=== PATIENT | male | born 1980 | race Hispanic/Latino ===

== ENCOUNTER 2025-03-28 23:42 | Emergency (ER) | payer SELFPAY ==
[2025-03-29] MEDS ORDERED: KETOROLAC 30 MG/ML INJ ONE (00:10)
[2025-03-29 00:21] LABS: Urine Microscopic Reflex YN NO UMIC
--- NOTE | 2025-03-29 02:11 | ER ---
Nurse's Notes [facility] Name: Eliecer La Age: 45 yrs Sex: Male : 1980 Arrival Date: 03/28/2025 Time: 23:42 Bed 5 Private MD: Diagnosis: Right Groin Pain Presentation: 03/28 23:51 Chief complaint: Patient states: Pt states he was working out yesterday and began br2 having pain to right groin that radiates to right flank area.. Denies pain with urination. Coronavirus screen: Client denies travel out of the [place] in the last 14 days. Ebola Screen: Patient denies exposure to infectious person. Initial Sepsis Screen: Does the patient meet any 2 criteria? No. Patient's initial sepsis screen is negative. Does the patient have a suspected source of infection? No. Patient's initial sepsis screen is negative. Risk Assessment: Do you want to hurt yourself or someone else? Patient reports no desire to harm self or others. Onset of symptoms was March 27, 2025. 23:51 Method Of Arrival: Ambulatory br2 23:51 Acuity: JOSE 3 br2 Triage Assessment: 23:56 General: Appears Behavior is calm, cooperative. Pain: Complains of pain in right br2 femoral area and right inguinal area Pain currently is 10 out of 10 on a pain scale. Historical: - Allergies: 23:56 No Known Allergies; br2 - PMHx: 23:56 None; br2 - Immunization history:: Adult Immunizations up to date. - Infectious Disease History:: Denies. - Social history:: Smoking status: Patient denies any tobacco usage or history of. Patient/guardian denies using alcohol, street drugs. Screenin:53 [facility] ED Fall Risk Assessment (Adult) History of falling in the last 3 months, bm8 including since admission No falls in past 3 months (0 pts) Confusion or Disorientation No (0 pts) Intoxicated or Sedated No (0 pts) Impaired Gait No (0 pts) Mobility Assist Device Used No (0 pt) Altered Elimination No (0 pt) Score/Fall Risk Level 0 - 2 = Low Risk Oriented to surroundings, Maintained a safe environment, Educated pt \T\ family on fall prevention, incl call for assistance when getting out of bed, Assessed \T\ reinforced patient's understanding of fall precautions, Hourly rounding (assess needs \T\ fall precautionary measures) done, Used ambulatory aids as needed (educated on \T\ assisted with), Used gait belt as appropriate. Abuse screen: Denies threats or abuse. Nutritional screening: No deficits noted. Tuberculosis screening: No symptoms or risk factors identified. Assessment: 03/29 00:02 General: Appears in no apparent distress. uncomfortable, Behavior is calm, cooperative, bm8 appropriate for age. Pain: Complains of pain in right femoral area Pain currently is 5 out of 10 on a pain scale. at worst was 10 out of 10 on a pain scale. Quality of pain is described as tight, tugging. Neuro: No deficits noted. Level of Consciousness is awake, alert, obeys commands, Oriented to person, place, time, situation, Appropriate for age. Cardiovascular: Denies chest pain, Capillary refill < 3 seconds in bilateral fingers Patient's skin is warm and dry. Respiratory: Airway is patent Respiratory effort is even, unlabored, Respiratory pattern is regular, symmetrical. GI: No signs and/or symptoms were reported involving the gastrointestinal system. : Reports pain in right groin. EENT: No signs and/or symptoms were reported regarding the EENT system. Derm: No signs and/or symptoms reported regarding the dermatologic system. Musculoskeletal: No signs and/or symptoms reported regarding the musculoskeletal system. 01:21 Reassessment: Patient appears in no apparent distress at this time. Patient and/or bm8 family updated on plan of care and expected duration. Pain level reassessed. Patient is alert, oriented x 3, equal unlabored respirations, skin warm/dry/pink. Patient states feeling better. Patient states symptoms have improved. Pain: Pain currently is 3 out of 10 on a pain scale. 02:27 Reassessment: Patient appears in no apparent distress at this time. No changes from bm8 previously documented assessment. Patient and/or family updated on plan of care and expected duration. Pain level reassessed. Patient is alert, oriented x 3, equal unlabored respirations, skin warm/dry/pink. Patient states feeling better. Patient states symptoms have improved. 02:28 Reassessment: awaiting CT results for discharge per provider. Vital Signs: 03/28 23:51 BP 157 / 96; Pulse 81; Resp 18; Temp 98.6; Pulse Ox 96% on R/A; Weight 87.09 kg; Height br2 5 ft. 8 in. ; Pain 10/10; 03/29 00:02 BP 129 / 68; Pulse 88; Resp 17; Temp 98.6; Pulse Ox 97% ; Pain 5/10; bm8 01:21 BP 126 / 78; Pulse 74; Resp 17; Temp 98.6; Pulse Ox 96% ; Pain 3/10; bm8 02:27 BP 127 / 70; Pulse 74; Resp 17; Temp 98.6; Pulse Ox 97% ; Pain 0/10; bm8 03/28 23:51 Body Mass Index 29.19 (87.09 kg, 172.72 cm) br2 03/28 23:51 Pain Scale: Adult br2 03/29 00:02 Pain Scale: Adult bm8 01:21 Pain Scale: Adult bm8 02:27 Pain Scale: Adult bm8 Elisabeth Coma Score: 03/28 23:53 Eye Response: spontaneous(4). Motor Response: obeys commands(6). Verbal Response: bm8 oriented(5). Total: 15. 03/29 01:21 Eye Response: spontaneous(4). Motor Response: obeys commands(6). Verbal Response: bm8 oriented(5). Total: 15. 02:27 Eye Response: spontaneous(4). Motor Response: obeys commands(6). Verbal Response: bm8 oriented(5). Total: 15. ED Course: 03/28 23:44 Patient arrived in ED. [id number] 23:46 Donald Person [facility]. cp 23:46 Marianna Sanchez MD is Attending Physician. cp 23:53 Patient has correct armband on for positive identification. Placed in gown. Bed in low bm8 position. Call light in reach. Side rails up X 1. Adult w/ patient. Client placed on continuous cardiac and pulse oximetry monitoring. NIBP monitoring applied. Pulse ox on. NIBP on. Door closed. Warm blanket given. Verbal reassurance given. Head of bed elevated. 23:53 Patient maintains SpO2 saturation greater than 95% on room air. bm8 23:56 Triage completed. br2 23:56 Arm band placed on right wrist. br2 03/29 00:02 Jerry Soares, RN is Primary Nurse. bm8 00:42 CT Stone Protocol In Process Unspecified. EDMS 01:24 No provider procedures requiring assistance completed. Patient did not have IV access bm8 during this emergency room visit. 02:27 Provided Education on: post er care. bm8 Administered Medications: 00:16 Drug: Ketorolac IM 30 mg IM once Route: IM; Site: right vastus lateralis; zm 01:23 Follow up: Response: No adverse reaction bm8 00:16 Drug: Methocarbamol PO 750 mg PO once Route: PO; zm 01:23 Follow up: Response: No adverse reaction bm8 Medication: 03/28 23:53 VIS not applicable for this client. bm8 Outcome: 03/29 02:10 Discharge ordered by MD. cp 02:32 Discharged to home ambulatory, with family, bm8 02:32 Condition: stable 02:32 Discharge instructions given to patient, family, Instructed on discharge instructions, follow up and referral plans. no drinking with medication, no driving heavy equipment, medication usage, safety practices, Demonstrated understanding of instructions, follow-up care, medications, Prescriptions given X 2, 02:36 Patient left the ED. bm8 Signatures: Dispatcher [employer] EDMS Donald Person PA-C PASarita Jackson cp [email or web address] Donna Nixon, CHANDAN RN zm Jerry Soares RN RN bm8 Eileen Torres RN RN br2
--- NOTE | 2025-03-29 02:11 | EDPHYS ---
Physician Documentation [facility] Name: Eliecer La Age: 45 yrs Sex: Male : 1980 Arrival Date: 03/28/2025 Time: 23:42 Bed 5 Private MD: ED Physician Marianna Sanchez HPI: 03/28 23:55 This 45 yrs old Male presents to ER via Ambulatory with complaints of Hip Injury, Groin cp Injury. 23:55 The patient or guardian reports right groin pain. sustained from unknown reason, pain cp started yesterday, worked out 2 days ago but no known injury and/or immediate pain. The complaints affect the right inguinal and right groin. Onset: The symptoms/episode began/occurred today. Associated signs and symptoms: Pertinent negatives: abdominal pain, diarrhea, dysuria, fever, weakness. Severity of symptoms: in the emergency department the symptoms are unchanged, despite home interventions. Historical: - Allergies: 23:56 No Known Allergies; br2 - PMHx: 23:56 None; br2 - Immunization history:: Adult Immunizations up to date. - Infectious Disease History:: Denies. - Social history:: Smoking status: Patient denies any tobacco usage or history of. Patient/guardian denies using alcohol, street drugs. ROS: 23:59 MS/extremity: Positive for pain, of the right inguinal and right groin, Negative for cp decreased range of motion, 23:59 Eyes: Negative for injury, pain, redness, and discharge, cp 23:59 Constitutional: Negative for body aches, chills, fever, 23:59 Abdomen/GI: Negative for abdominal pain, vomiting, diarrhea, constipation, 23:59 Back: Negative for pain at rest, pain with movement, radiated pain, 23:59 : Negative for urinary symptoms, testicular pain 23:59 Skin: Negative for rash, 23:59 All other systems are negative, Exam: 23:59 Head/Face: Normocephalic, atraumatic. cp 23:59 Constitutional: The patient appears in no acute distress, alert, awake, non-toxic, well developed, well nourished, 23:59 Eyes: Periorbital structures: appear normal, Conjunctiva: normal, no exudate, no injection, Sclera: no appreciated abnormality, Lids and lashes: appear normal, bilaterally, 23:59 ENT: External ear(s): are unremarkable, Nose: is normal, Mouth: Lips: moist, Oral mucosa: moist, Posterior pharynx: Airway: no evidence of obstruction, patent, 23:59 Chest/axilla: Inspection: normal, 23:59 Cardiovascular: Rate: normal, 23:59 Respiratory: the patient does not display signs of respiratory distress, Respirations: normal, no use of accessory muscles, no retractions, labored breathing, is not present, Breath sounds: are clear throughout, no decreased breath sounds, no stridor, no wheezing, 23:59 Abdomen/GI: Inspection: abdomen appears normal, Bowel sounds: active, all quadrants, Palpation: abdomen is soft and non-tender, in all quadrants, tenderness with no obvious swelling and/or mass right inguinal and right groin, 23:59 Back: pain, is absent, ROM is normal, 23:59 Skin: cellulitis, is not appreciated, no rash present. Vital Signs: 23:51 BP 157 / 96; Pulse 81; Resp 18; Temp 98.6; Pulse Ox 96% on R/A; Weight 87.09 kg; Height br2 5 ft. 8 in. ; Pain 10/10; 03/29 00:02 BP 129 / 68; Pulse 88; Resp 17; Temp 98.6; Pulse Ox 97% ; Pain 5/10; bm8 01:21 BP 126 / 78; Pulse 74; Resp 17; Temp 98.6; Pulse Ox 96% ; Pain 3/10; bm8 02:27 BP 127 / 70; Pulse 74; Resp 17; Temp 98.6; Pulse Ox 97% ; Pain 0/10; bm8 03/28 23:51 Body Mass Index 29.19 (87.09 kg, 172.72 cm) br2 03/28 23:51 Pain Scale: Adult br2 03/29 00:02 Pain Scale: Adult bm8 01:21 Pain Scale: Adult bm8 02:27 Pain Scale: Adult bm8 Elisabeth Coma Score: 03/28 23:53 Eye Response: spontaneous(4). Motor Response: obeys commands(6). Verbal Response: bm8 oriented(5). Total: 15. 03/29 01:21 Eye Response: spontaneous(4). Motor Response: obeys commands(6). Verbal Response: bm8 oriented(5). Total: 15. 02:27 Eye Response: spontaneous(4). Motor Response: obeys commands(6). Verbal Response: bm8 oriented(5). Total: 15. MDM: 03/28 23:46 Medical Screening Exam initiated cp 03/29 00:00 Differential diagnosis: muscle strain, uti, enlarged lymph node, uti, appendicitis, cp kidney stone. 02:15 Data reviewed: vital signs, nurses notes, lab test result(s), urinalysis. cp 02:15 Response to treatment: the patient's symptoms have mildly improved after treatment. cp Transition of care: After a detail discussion of the patient's case, care is transferred to Marianna Sanchez MD. ED course: awaiting radiologist read of CT abdomen/pelvis. patient and family updated. 03/28 23:53 Order name: UA Rfx Brandon Cult if indicated; Complete Time: 00:42 cp 03/29 00:42 Interpretation: Normal except: UKET 1+; UUROB 1+. cp 03/29 00:02 Order name: CT Stone Protocol cp Administered Medications: 00:16 Drug: Ketorolac IM 30 mg IM once Route: IM; Site: right vastus lateralis; zm 01:23 Follow up: Response: No adverse reaction bm8 00:16 Drug: Methocarbamol PO 750 mg PO once Route: PO; zm 01:23 Follow up: Response: No adverse reaction bm8 Disposition Summary: 03/29/25 02:10 Discharge Ordered Notes: Location: Home cp Problem: new cp Symptoms: have improved cp Condition: Stable cp Diagnosis - Right Groin Pain cp Followup: cp - With: Private Physician - When: 2 - 3 days - Reason: Worsening of condition Discharge Instructions: - Discharge Summary Sheet cp - Muscle Strain cp - Musculoskeletal Pain cp - Muscle Pain, Adult cp Forms: - Medication Reconciliation Form cp - Antibiotic Education cp - Prescription Opioid Use cp - Patient Portal Instructions cp - Leadership Thank You Letter cp - Work release form zm Prescriptions: - Diclofenac Sodium 75 mg Oral tablet, delayed release (enteric coated) - take 1 tablet ORAL route 2 times per day; 20 tablet; Refills: 0, Product cp Selection Permitted - methocarbamol 750 mg Oral tablet - take 1 tablet ORAL route 3 times per day; 30 tablet; Refills: 0, Product cp Selection Permitted Signatures: Dispatcher [facility] Donald Reaves, Donna Amaro PA-C, cp, RN RN zm Eileen Torres RN RN br2 Jerry Soares RN bm8
--- NOTE | 2025-03-29 03:21 | RAD REPORT ---
EXAM DESCRIPTION: Stone Protocol [facility]Lex: CT ABDOMEN PELVIS WITHOUT IV CONTRAST CLINICAL HISTORY: 45 years Male; right groin pain; Bed Name: 5 TECHNIQUE: CT of the abdomen and pelvis without contrast. All CT scans at this facility use dose modulation, iterative reconstruction, and/or weight based dosi ng when appropriate to reduce radiation dose to as low as reasonably achievable. COMPARISON: None. FINDINGS: Lower thorax: Lung bases are clear Abdomen: Stomach: Within normal limits Liver: No focal lesions. No intrahepatic ductal distention. Gallbladder: Nondistended Pancreas: Within normal limits Spleen: Within normal limits Right kidney: No hydronephrosis. No renal or ureteral calculi. Left kidney: No hydronephrosis. No renal or ureteral calculi. Adrenal glands: Within normal limits Vascular structures: Within normal limits (although limited evaluation on noncontrast exam). Lymph nodes: No lymphadenopathy by size criteria Pelvis: Small bowel: No significant distention. Appendix: Within normal limits Colon: No distention or acute pericolonic edema. Peritoneum: No free intraperitoneal fluid or air. Bones: No acute bone findings. Bladder: Unremarkable. Reproductive organs: No acute findings. Soft tissues: Small fat-containing umbilical hernia. Note that evaluation of the bowel and solid organs is somewhat limited due to lack of intravenous and oral contrast. IMPRESSION: 1. No acute abdominopelvic findings. 2. No urinary tract calculi. Electronically signed by: Agnes Fraser MD 03/29/2025 02:23 AM CDT TYG Due to temporary technical issues with the PACS/[place] reporting system, reports are being xenia d by the in-house radiologist without review as a courtesy to ensure prompt reporting the interpreting radiologist is fully responsible for the content of the report. Transcribed Date/Time: 03/29/2025 3:21 AM
[2025-03-29 10:16] VITALS: TEMP 98.6
[2025-03-29 10:24] VITALS: BP 127/70; O2SAT 97
== END 2025-03-29 02:36 | disposition home or self-care (01) ==
LOC: ER 23:42
DX: R10.31 Right lower quadrant pain (principal)
CPT/HCPCS: 74176; 76377; 81003; 96372; 99284